=== PATIENT | male | born 1985 | race Caucasian/White ===

== ENCOUNTER 2017-09-08 07:34 | Day surgery (SDC) | payer OTHER, SELFPAY ==
[~2017-09-08 07:34] MED LIST: Dexamethasone 4 MG/ML SDV ONE; Glycopyrrolate 0.2 MG/ML 5 ML MDV ONE; Neostigmine Methylsulfate 1 MG/ML 5 ML Syringe ONE; Ondansetron 4 MG/2 ML SDV ONE; Propofol 200 MG/20 ML SDV ONE; Rocuronium 50 MG/5 ML Vial ONE; Succinylcholine 200 MG/10 ML MDV ONE
[2017-09-08] MEDS: Sodium Chloride 0.9% 1,000 ML IV SCH ×2 (08:24→14:16)
[2017-09-08] MEDS ORDERED: metroNIDAZOLE/Normal Saline 500 MG in Premix Bag 1 BAG IV ONE (08:45)
[2017-09-08] MEDS ORDERED: ceFAZolin 2 GM in Sodium Chloride 0.9% 50 ML IV ONE (09:00)
[2017-09-08] MEDS: Bupivacaine 0.5% 50 ML MDV ONE ×2 (09:30→10:05)
[2017-09-08] MEDS: Lidocaine 1% with EPINEPHrine 1:100,000 50 ML MDV ONE ×2 (09:31→10:05)
[2017-09-08] MEDS ORDERED: Propofol 200 MG/20 ML SDV ONE (09:56)
[2017-09-08] MEDS ORDERED: fentaNYL 100 MCG/2 ML SDV ONE (09:58)
[2017-09-08] MEDS ORDERED: Ketorolac 60 MG/2 ML SDV ONE (10:02)
[2017-09-08] MEDS ORDERED: Morphine 2 MG/ML Syringe IVPUSH PRN (11:10)
[2017-09-08] MEDS: Acetaminophen/oxyCODONE 325-5 MG Tab PO PRN ×2 (12:13→16:23)
[2017-09-08 14:07] VITALS: BP 147/83
--- NOTE | 2017-09-09 09:36 | OR ---
DATE OF PROCEDURE: 09/08/2017 PROCEDURE: Laparoscopic ventral hernia repair x2. FINDINGS: 1. 1 cm hernia directly superior to previous repair. 2. 1.5 cm hernia around umbilicus. COMPLICATIONS: None. APPLICATION MANAGER: None. ANESTHESIA: General/local. INDICATIONS: This is a pleasant gentleman, who had a previous ventral hernia repair . RISKS: Risks, benefits, alternatives, and limitations including, but not limited to infection, bleeding, and injury to abdominal structures such as bowel, bladder, and requirement of open surgery were explained to the patient, who wished to proceed. PROCEDURE IN DETAIL: The patient was placed in left lateral decubitus position. The hernia would be addressed as follows: An incision was made in the right abdomen. This was approximately 50 mm in size, and a Veress needle was used to enter the abdomen without abnormality. A drop test was performed without abnormality. The abdomen was subsequently insufflated, and this was followed by an Optiview trocar. Two additional 5 mm ports were also placed in the right lower and right upper abdomen. Lysis of adhesions was then commenced after the Optiview was introduced, and no evidence of enterotomy is noted. The adhesions were moderate. The previous mesh was noted to be intact without abnormality. The 2 previously mentioned hernias were identified. These both would be replaced with 7.5 cm circular mesh. These were both repaired in the same fashion by creating a defect in the skin, passing a suture through, and then tacking into place. Once this was completed, the abdomen was inspected for abnormality, which there was none. The remainder of the abdomen was inspected without abnormality again a second time. The air was desufflated. The wound was closed with 3-0 Vicryl and 4-0 Vicryl interrupted in running fashion, and Dermabond was applied. The patient tolerated the procedure well. Costa Jorge MD /[id number]
--- NOTE | 2017-09-15 15:18 | DISCH ---
DISCHARGE DIAGNOSIS: Status post laparoscopic ventral hernia. HOSPITAL COURSE: A pleasant 32-year-old male who underwent an uneventful laparoscopic ventral hernia. FOLLOWUP: Follow up with Surgery in 7 to 14 days. DISCHARGE MEDICATIONS: Please see MAR, but include [place] for pain. ACTIVITY: No lifting greater than 30 pounds x30 days. DIET: As tolerated. DRESSINGS: No dressing changes needed as Dermabond was used.
== END 2017-09-08 16:45 | disposition home or self-care (01) ==
LOC: JP.SDS 07:34 → JP.SDSSCHI 07:34 → UNDOADMOB 07:34 → JP.SDSSCHI 10:55 → JP.MS 10:55 → EDSTATUS 11:00 → JP.SDS 16:45 → UNDODISOB 16:55
PROVIDERS: ATTEND Surgery
DX: K43.9 Ventral hernia without obstruction or gangrene (principal); J45.909 Unspecified asthma, uncomplicated; I10 Essential (primary) hypertension; K21.9 Gastro-esophageal reflux disease without esophagitis; F32.9 Major depressive disorder, single episode, unspecified; Z88.8 Allergy status to other drugs, medicaments and biological substances; E66.9 Obesity, unspecified; Z87.891 Personal history of nicotine dependence; Z68.41 Body mass index [BMI] 40.0-44.9, adult
CPT/HCPCS: 49652; A9270; C1781; J0330; J0690; J1100; J1885; J2405; J2704; J2710; J3010; J7040; J7050; J7030

== ENCOUNTER 2019-10-29 16:37 | Emergency (ER) | payer OTHER ==
[2019-10-29] MEDS ORDERED: HYDROmorphone 0.5 MG/0.5 ML Syringe IVPUSH ONE (16:56)
[2019-10-29] MEDS ORDERED: Ondansetron 4 MG/2 ML SDV IVPUSH ONE (16:56)
--- NOTE | 2019-10-29 16:58 | EDM.PDOC ---
ED HPI GENERAL MEDICAL PROBLEM - General Chief Complaint: Chest Pain Stated Complaint: SOB,CHEST PAIN Time Seen by Provider: 10/29/19 16:57 Source of Information: Reports: Patient History Limitations: Reports: No Limitations - History of Present Illness INITIAL COMMENTS - FREE TEXT/NARRATIVE: pt arrived stating that he is having pain in his chest going up to his neck. After he was here for a few minutes the abdoman seemed to be the source of his pain. Onset: Today, Sudden Duration: Hour(s): Location: Reports: Abdomen Associated Symptoms: Reports: Nausea/Vomiting, Other (pt did have chest pain in addition to the abdomanal pain) Left Chest Pain Score (Numeric/FACES): 5 - Related Data Allergies Allergy/AdvReac Type Severity Reaction Status Date / Time acetaminophen [From Vicodin] Allergy Itching Verified 09/07/17 10:07 hydrocodone [From Vicodin] Allergy Itching Verified 09/07/17 10:07 Home Meds: Home Meds Omeprazole 20 mg PO DAILY 06/30/13 [History] lisinopriL [Prinivil] 20 mg PO DAILY 06/30/13 [History] hydroCHLOROthiazide [Hydrochlorothiazide] 25 mg PO DAILY 07/27/16 [History] DULoxetine HCl [Cymbalta] 60 mg PO DAILY 09/07/17 [History] Past Medical History HEENT History: Reports: Impaired Vision Cardiovascular History: Reports: Hypertension Respiratory History: Reports: Asthma, Other (See Below) Other Respiratory History: hx asthma when younger, no problems now Gastrointestinal History: Reports: GERD Genitourinary History: Reports: Renal Calculus Musculoskeletal History: Reports: Amputation Psychiatric History: Reports: Anxiety, Depression Endocrine/Metabolic History: Reports: Obesity/BMI 30+ Dermatologic History: Reports: Eczema, Other (See Below) Other Dermatologic History: hx eczema no problems now - Infectious Disease History Infectious Disease History: Reports: Chicken Pox - Past Surgical History Cardiovascular Surgical History: Reports: None Respiratory Surgical History: Reports: None GI Surgical History: Reports: Hernia, Abdominal, Other (See Below) Other GI Surgeries/Procedures: hernia one year ago, same spot "ventral" Endocrine Surgical History: Reports: None Musculoskeletal Surgical History: Reports: Amputation, Other (See Below) Dermatological Surgical History: Reports: None Social & Family History - Tobacco Use Smoking Status *Q: Never Smoker - Caffeine Use Caffeine Use: Reports: Coffee, Soda, Tea Other Caffeine Use: minimal mostly water - Alcohol Use Days Per Week of Alcohol Use: 7 Number of Drinks Per Day: 3 Total Drinks Per Week: 21 Date of Last Drink: 10/28/19 - Recreational Drug Use Recreational Drug Use: No ED ROS GENERAL - Review of Systems Review Of Systems: See Below Constitutional: Reports: No Symptoms HEENT: Reports: No Symptoms Respiratory: Reports: No Symptoms Cardiovascular: Reports: Chest Pain, Other ( this did relent and he was having abdomanal pain) Endocrine: Reports: No Symptoms GI/Abdominal: Reports: Abdominal Pain : Reports: No Symptoms Musculoskeletal: Reports: No Symptoms Skin: Reports: No Symptoms Neurological: Reports: No Symptoms Psychiatric: Reports: No Symptoms ED EXAM, GENERAL - Physical Exam Exam: See Below Free Text/Narrative:: pt arrived with chest pain which seemed to rapidly center to his rt upper abdoman. Exam Limited By: No Limitations General Appearance: Alert, Anxious, Severe Distress Ears: Normal TMs Nose: Normal Inspection Throat/Mouth: Normal Inspection Head: Atraumatic Neck: Normal Inspection Respiratory/Chest: No Respiratory Distress Cardiovascular: Regular Rate, Rhythm, Tachycardia, Other (pt was complaining of mid chest pain. ) GI/Abdominal: Guarding, Other (pt had definite tenderness in rt upper abdoman. He states he feels like he has mass pushing in the area. ) Rectal (Males) Exam: Deferred Back Exam: Normal Inspection Extremities: Normal Inspection Neurological: Alert, Oriented, Normal Cognition Psychiatric: Anxious Course - Vital Signs Last Recorded V/S: Last Vital Signs Temp 36.0 C L 10/29/19 16:43 Pulse 68 10/29/19 17:54 Resp 15 10/29/19 17:54 BP 165/97 H 10/29/19 17:54 Pulse Ox 95 10/29/19 17:54 - Orders/Labs/Meds Labs: Laboratory Tests 10/29/19 10/29/19 10/29/19 Range/Units 16:45 16:45 16:45 WBC 6.1 (4.5-11.0) K/uL RBC 4.90 (4.30-5.90) M/uL Hgb 16.2 H (12.0-15.0) g/dL Hct 47.9 (40.0-54.0) % MCV 98 (80-98) fL MCH 33 H (27-31) pg MCHC 34 (32-36) % Plt Count 154 (150-400) K/uL Neut % (Auto) 65 (36-66) % Lymph % (Auto) 21 L (24-44) % [place] % (Auto) 12 H (2-6) % Eos % (Auto) 2 (2-4) % Baso % (Auto) 0 (0-1) % Sodium 137 L (140-148) mmol/L Potassium 3.0 L (3.6-5.2) mmol/L Chloride 99 L (100-108) mmol/L Carbon Dioxide 22 (21-32) mmol/L Anion Gap 19.0 H (5.0-14.0) mmol/L BUN 6 L (7-18) mg/dL Creatinine 1.0 (0.8-1.3) mg/dL Est Cr Clr Drug Dosing 109.81 mL/min Estimated GFR (MDRD) > 60 (>60) Glucose 113 H (74-106) mg/dL Calcium 8.7 (8.5-10.1) mg/dL Total Bilirubin 2.6 H (0.2-1.0) mg/dL AST 90 H (15-37) U/L ALT 44 (12-78) U/L Alkaline Phosphatase 64 (46-116) U/L Troponin I < 0.017 (0.000-0.056) ng/mL Total Protein 7.9 (6.4-8.2) g/dL Albumin 4.1 (3.4-5.0) g/dL Globulin 3.8 H (2.3-3.5) g/dL Albumin/Globulin Ratio 1.1 L (1.2-2.2) Lipase (73-393) U/L Urine Color (YELLOW) Urine Appearance (CLEAR) Urine pH (5.0-8.0) Ur Specific [place] (1.008-1.030) Urine Protein (NEGATIVE) mg/dL Urine Glucose (UA) (NEGATIVE) mg/dL Urine Ketones (NEGATIVE) mg/dL Urine Occult Blood (NEGATIVE) Urine Nitrite (NEGATIVE) Urine Bilirubin (NEGATIVE) Urine Urobilinogen (0.2-1.0) EU/dL Ur Leukocyte Esterase (NEGATIVE) Urine RBC (0-5) Urine WBC (0-5) Ur Epithelial Cells Amorphous Sediment Urine Bacteria Urine Mucus 03/02/20 03/02/20 Range/Units 16:45 18:55 WBC (4.5-11.0) K/uL RBC (4.30-5.90) M/uL Hgb (12.0-15.0) g/dL Hct (40.0-54.0) % MCV (80-98) fL MCH (27-31) pg MCHC (32-36) % Plt Count (150-400) K/uL Neut % (Auto) (36-66) % Lymph % (Auto) (24-44) % [place] % (Auto) (2-6) % Eos % (Auto) (2-4) % Baso % (Auto) (0-1) % Sodium (140-148) mmol/L Potassium (3.6-5.2) mmol/L Chloride (100-108) mmol/L Carbon Dioxide (21-32) mmol/L Anion Gap (5.0-14.0) mmol/L BUN (7-18) mg/dL Creatinine (0.8-1.3) mg/dL Est Cr Clr Drug Dosing mL/min Estimated GFR (MDRD) (>60) Glucose (74-106) mg/dL Calcium (8.5-10.1) mg/dL Total Bilirubin (0.2-1.0) mg/dL AST (15-37) U/L ALT (12-78) U/L Alkaline Phosphatase (46-116) U/L Troponin I (0.000-0.056) ng/mL Total Protein (6.4-8.2) g/dL Albumin (3.4-5.0) g/dL Globulin (2.3-3.5) g/dL Albumin/Globulin Ratio (1.2-2.2) Lipase 222 (73-393) U/L Urine Color Yellow (YELLOW) Urine Appearance Clear (CLEAR) Urine pH 7.0 (5.0-8.0) Ur Specific [place] 1.025 (1.008-1.030) Urine Protein Negative (NEGATIVE) mg/dL Urine Glucose (UA) Negative (NEGATIVE) mg/dL Urine Ketones Negative (NEGATIVE) mg/dL Urine Occult Blood Negative (NEGATIVE) Urine Nitrite Negative (NEGATIVE) Urine Bilirubin Negative (NEGATIVE) Urine Urobilinogen 0.2 (0.2-1.0) EU/dL Ur Leukocyte Esterase Negative (NEGATIVE) Urine RBC 0-5 (0-5) Urine WBC Not seen (0-5) Ur Epithelial Cells Not seen Amorphous Sediment Not seen Urine Bacteria Not seen Urine Mucus Not seen Meds: Medications Discontinued Medications Generic Name Dose Route Start Last Admin Trade Name Freq PRN Reason Stop Dose Admin Hydromorphone HCl 0.5 mg 10/29/19 16:56 10/29/19 17:03 Dilaudid IVPUSH 10/29/19 16:57 0.5 mg ONETIME ONE Administration Sodium Chloride 1,000 mls @ 999 mls/hr 10/29/19 17:00 10/29/19 17:05 Normal Saline IV 999 mls/hr ASDIRECTED PRABHA Administration Ondansetron HCl 4 mg 10/29/19 16:56 10/29/19 17:05 Zofran IVPUSH 10/29/19 16:57 4 mg ONETIME ONE Administration - Re-Assessments/Exams Free Text/Narrative Re-Assessment/Exam: 10/29/19 17:33 pt has a normal wbc, bilirubin is 2 and his sgot is elevated. He had a cat scan 2 weeks ago which showed an enlarged spleen and liver. Departure - Departure Time of Disposition: 17:55 Disposition: Home, Self-Care 01 Condition: Fair Clinical Impression: Cholecystitis Referrals: Pk Russo NP [Primary Care Provider] - Forms: ED Department Discharge Care Plan Goals: admit to hosp Sepsis Event Note - Evaluation Sepsis Screening Result: No Definite Risk - Focused Exam Date Exam was Performed: 11/17/19 Time Exam was Performed: 19:25
[2019-10-29] MEDS ORDERED: Sodium Chloride 0.9% 1,000 ML IV SCH (17:00)
[2019-10-29 17:55] VITALS: BP 165/97; PULSE 68
--- NOTE | 2019-10-29 19:06 | CRLUS ---
Indication: Right upper abdominal pain. Technique: Grayscale and color Doppler ultrasound the right upper quadrant was performed. Comparison: CT scan of the abdomen and pelvis dated October 08, 2019. Findings: The pancreas is not well visualized. Aorta is not well visualized. The liver is enlarged and has a coarsened echotexture. No intrahepatic biliary ductal dilatation is identified. No intrahepatic masses identified. The main portal vein is patent. Sludge is identified within the gallbladder. A questionable 5 millimeter polyp versus stone is identified. This is a non shadowing nonmobile adherent mass. The gallbladder wall measures 2 mm in thickness. Sonographic Hanna`s sign is not elicited. The common bile duct measures 5 mm and seen. The right kidney measures 11.5 x 5.1 x 4.5 cm in size. The cortex measures 1.1 cm. No hydronephrosis is identified. The inferior vena cava is patent. No free fluid is identified in the right upper quadrant. Impression: Stone versus tumefactive sludge versus polyp measuring 5 millimeters within the gallbladder. Hepatomegaly. Questionable diffuse fatty infiltration of the liver. Dictated by Mila Davis MD @ Oct 29 2019 7:02PM Signed by Dr. Mila Davis @ Oct 29 2019 7:04PM
== END 2019-10-29 19:13 | disposition home or self-care (01) ==
LOC: JP.ED 16:37
DX: K81.9 Cholecystitis, unspecified (principal); I10 Essential (primary) hypertension; J45.909 Unspecified asthma, uncomplicated; K21.9 Gastro-esophageal reflux disease without esophagitis; Z88.6 Allergy status to analgesic agent; Z79.899 Other long term (current) drug therapy
CPT/HCPCS: 36415; 76705; 80053; 81001; 83690; 84484; 85025; 93005; 96361; 96374; 96375; 99285-25; J1170; J2405; J7030

== ENCOUNTER 2021-11-09 20:35 | Emergency (ER) | payer OTHER ==
[2021-11-09] MEDS ORDERED: HYDROmorphone 1 MG/ML Syringe IVPUSH ONE (21:15)
[2021-11-09] MEDS ORDERED: Ondansetron 4 MG/2 ML SDV IVPUSH ONE (21:16)
[2021-11-09] MEDS ORDERED: Lactated Ringers 1,000 ML IV ONE (21:17)
[2021-11-09] MEDS: Sodium Chloride 0.9% 10 ML Syringe FLUSH PRN ×2 (21:31→22:20)
[2021-11-09] MEDS ORDERED: Sodium Chloride 0.9% 10 ML Syringe FLUSH ONE (21:34)
[2021-11-09] MEDS ORDERED: Sodium Chloride 0.9% 50 ML IV SCH (21:45)
[2021-11-09] MEDS ORDERED: Iopamidol 612 MG/ML 100 ML Bottle IV SCH (21:45)
[2021-11-09 22:11] LABS: CORONAVIRUS COVID-19 NAA POSITIVE (NEGATIVE)
[2021-11-09 22:26] VITALS: BP 135/81; PULSE 83
== END 2021-11-09 23:35 | disposition home or self-care (01) ==
LOC: JP.ED 20:35
DX: U07.1 COVID-19 (principal); E87.6 Hypokalemia; R74.8 Abnormal levels of other serum enzymes; E80.6 Other disorders of bilirubin metabolism; Q44.6 Cystic disease of liver; I10 Essential (primary) hypertension; K21.9 Gastro-esophageal reflux disease without esophagitis; E66.9 Obesity, unspecified; Z88.5 Allergy status to narcotic agent; Z88.8 Allergy status to other drugs, medicaments and biological substances; Z79.899 Other long term (current) drug therapy; Z20.822 Contact with and (suspected) exposure to COVID-19; Z68.39 Body mass index [BMI] 39.0-39.9, adult
CPT/HCPCS: 0241U; 36415; 74177; 80048; 80076; 83605; 85025; 86140; 96374; 96375; 99284; 99284-25; J1170; J2405; J7120; Q9967

== ENCOUNTER 2022-09-30 17:54 | Emergency (ER) | payer OTHER ==
[2022-09-30] MEDS ORDERED: Ondansetron 4 MG Tab.DIS PO ONE (18:43)
[2022-09-30] MEDS ORDERED: Ondansetron 4 MG Tab.DIS PO STA ×2 (18:43)
[2022-09-30 19:33] VITALS: BP 164/92; PULSE 77
[2022-09-30 20:09] LABS: ESTIMATED GFR 99 mL/min (>60)
== END 2022-09-30 20:43 | disposition home or self-care (01) ==
LOC: JP.ED 17:54
DX: K59.00 Constipation, unspecified (principal); I10 Essential (primary) hypertension; J45.909 Unspecified asthma, uncomplicated; K21.9 Gastro-esophageal reflux disease without esophagitis; E66.9 Obesity, unspecified; Z68.41 Body mass index [BMI] 40.0-44.9, adult; Z88.5 Allergy status to narcotic agent; Z79.899 Other long term (current) drug therapy
CPT/HCPCS: 36415; 74019; 74019-26; 80053; 83690; 85025; 99282; 99284; Q0162

== ENCOUNTER 2024-09-28 06:52 | Day surgery (SDC) | payer OTHER ==
[2024-09-28] MEDS ORDERED: Propofol 200 MG/20 ML SDV ONE ×2 (07:19→08:43)
[2024-09-28] MEDS ORDERED: fentaNYL 50 MCG/ML SDV ONE (07:19)
[2024-09-28] MEDS ORDERED: Midazolam 1 MG/ML 2 ML SDV ONE (07:19)
[2024-09-28] MEDS: Lactated Ringers 1,000 ML IV SCH (07:58)
[2024-09-28 09:43] VITALS: BP 123/74; PULSE 68
== END 2024-09-28 09:56 | disposition home or self-care (01) ==
LOC: JP.SDS 06:52
PROVIDERS: ATTEND Surgery
DX: K29.00 Acute gastritis without bleeding (principal); K22.89 Other specified disease of esophagus; I10 Essential (primary) hypertension; K21.9 Gastro-esophageal reflux disease without esophagitis; F32.A Depression, unspecified; Z79.899 Other long term (current) drug therapy
CPT/HCPCS: 00731; 43239; J2250; J2704; J3010; J7120; 88305; 88342

== ENCOUNTER 2025-02-08 07:05 | Emergency (ER) | payer OTHER ==
[2025-02-08] MEDS: Prochlorperazine 10 MG/2 ML SDV IVPUSH ONE (08:16)
[2025-02-08] MEDS: Ketorolac 30 MG/ML SDV IVPUSH ONE (08:16)
[2025-02-08] MEDS: Sodium Chloride 0.9% 1,000 ML IV ONE (08:16)
[2025-02-08 08:17] LABS: BASOPHILS PERCENT AUTO 0.5 % (0.1-1.3); EOSINOPHILS PERCENT AUTO 0.3 % (0.0-5.4); HEMATOCRIT 45.1 % (38.4-49.7); HEMOGLOBIN 16.1 g/dL (12.9-16.9); IMMATURE GRAN PERCENT AUTO 0.3 % (0.0-0.7); LYMPHOCYTES ABSOLUTE AUTO 0.55 K/uL (0.8-3.3); LYMPHOCYTES PERCENT AUTO 14.4 % (11.4-47.7); MEAN CORPUSCULAR HEMOGLOBIN 34.3 pg (31.6-35.5); MEAN CORPUSCULAR HGB CONC 35.7 g/dL (31.6-35.5); MEAN CORPUSCULAR VOLUME 96.2 fL (81.4-99.0); MONOCYTES ABSOLUTE AUTO 0.53 K/uL (0.20-0.90); MONOCYTES PERCENT AUTO 13.9 % (3.3-12.6); NEUTROPHILS ABSOLUTE AUTO 2.69 K/uL (1.0-7.6); NEUTROPHILS PERCENT AUTO 70.6 % (40.0-78.1); PLATELET COUNT,PLT 126 K/uL (130-375); RED BLOOD CELL COUNT 4.69 M/uL (4.14-5.76); WHITE BLOOD CELL COUNT,WBC 3.8 K/uL (3.2-11.0)
[2025-02-08 08:19] LABS: BASE EXCESS VENOUS 3.8 mm/L; CARBOXYHEMOGLOBIN 3.3 % (0.0-1.6); METHEMOGLOBIN 0.8 %; OXYHEMOGLOBIN 86.3 %; PCO2 VENOUS 29.5 mm/Hg; PH,VENOUS 7.538 (7.350-7.450); TOTAL HEMOGLOBIN 16.8 g/dL (13.5-18.0)
[2025-02-08 08:21] LABS: BASOPHILS ABSOLUTE AUTO 0.02 K/uL (0.00-0.10); EOSINOPHILS ABSOLUTE AUTO 0.01 K/uL (0.00-0.40); IMMATURE GRAN ABSOLUTE AUTO 0.01 K/uL (0.00-0.23)
[2025-02-08 08:37] LABS: A/G RATIO 0.7 (1.2-2.2); ALANINE AMINOTRANSFERASE,ALT 99 U/L (12-78); ALBUMIN 3.3 g/dL (3.4-5.0); ALKALINE PHOSPHATASE 88 U/L (46-116); ASPARTATE AMNIOTRANSFERASE,AST 193 U/L (15-37); BILIRUBIN TOTAL 4.2 mg/dL (0.2-1.0); BLOOD UREA NITROGEN,BUN 11 mg/dL (7-18); CALCIUM 8.6 mg/dL (8.5-10.1); CARBON DIOXIDE,CO2 25 mmol/L (21-32); CHLORIDE,CL 99 mmol/L (100-108); EST CRCL DRUG DOSING (CG) 104.58 mL/min; ESTIMATED GFR 98 mL/min (>60); GLUCOSE RANDOM 121 mg/dL (74-106); POTASSIUM,K 3.8 mmol/L (3.6-5.2); PROTEIN TOTAL,TP 7.9 g/dL (6.4-8.2); SODIUM,NA 135 mmol/L (140-148)
[2025-02-08 08:38] LABS: ANION GAP 14.8 mmol/L (5.0-14.0); C-REACTIVE PROTEIN 2.59 mg/dL (<0.50); MAGNESIUM 1.3 mg/dL (1.8-2.4)
[2025-02-08] MEDS: Magnesium Sulfate 2 GM/50 mL 2 GM in Premix Bag 1 BAG IV ONE (09:26)
[2025-02-08 09:39] LABS: APPEARANCE,URINE CLOUDY (CLEAR); BILIRUBIN,URINE LARGE (NEGATIVE); COLOR,URINE BROWN (YELLOW); GLUCOSE,URINE NEGATIVE (NEGATIVE); KETONES,URINE 40 mg/dL (NEGATIVE); LEUKOCYTE ESTERASE,URINE NEGATIVE (NEGATIVE); NITRITE,URINE NEGATIVE (NEGATIVE); OCCULT BLOOD,URINE SMALL (NEGATIVE); PROTEIN,URINE 100 mg/dL (NEGATIVE); UROBILINOGEN,URINE >=8.0 EU/dL (0.2-1.0)
[2025-02-08 09:40] LABS: AMPHETAMINES SCREEN, URINE NEGATIVE (NEGATIVE); BARBITURATE SCREEN,URINE NEGATIVE (NEGATIVE); BENZODIAZEPINES SCREEN,URINE NEGATIVE (NEGATIVE); METHADONE SCREEN, URINE NEGATIVE (NEGATIVE); METHAMPHETAMINES SCREEN, URINE NEGATIVE (NEGATIVE); OXYCODONE SCREEN,URINE PRESUMPTIVE POSITIVE (NEGATIVE); PROPOXYPHENE SCREEN,URINE NEGATIVE (NEGATIVE); THC SCREEN,URINE 50 NG/ML PRESUMPTIVE POSITIVE (NEGATIVE)
[2025-02-08 09:46] LABS: AMORPHOUS SEDIMENT,URINE NOT SEEN; BACTERIA,URINE NOT SEEN; EPITHELIAL CELLS,URINE FEW; MUCUS,URINE FEW; WBC,URINE 0-5 (0-5)
[2025-02-08 10:02] VITALS: BP 135/82; PULSE 72
== END 2025-02-08 12:20 | disposition home or self-care (01) ==
LOC: JP.ED 07:05
DX: K70.30 Alcoholic cirrhosis of liver without ascites (principal); E83.42 Hypomagnesemia; K76.6 Portal hypertension; R06.4 Hyperventilation; J45.909 Unspecified asthma, uncomplicated; K21.9 Gastro-esophageal reflux disease without esophagitis; E66.9 Obesity, unspecified; Z68.37 Body mass index [BMI] 37.0-37.9, adult; Z86.16 Personal history of COVID-19; Z79.899 Other long term (current) drug therapy; Z88.5 Allergy status to narcotic agent; Z88.8 Allergy status to other drugs, medicaments and biological substances
CPT/HCPCS: 36415; 71045; 74177; 76705; 80053; 80305; 80307; 81001; 82803; 83605; 83690; 83735; 85025; 86140; 86308; 87428; 96361; 96365; 96366; 96375; 99284; J0780; J1885; J3475; J7030

== ENCOUNTER 2025-04-20 02:15 | Emergency (ER) | payer OTHER ==
[2025-04-20] MEDS ORDERED: Ondansetron 4 MG/2 ML SDV ONE (02:49)
[2025-04-20] MEDS: Ondansetron 4 MG/2 ML SDV IVPUSH ONE (02:53)
[2025-04-20 03:00] LABS: BASOPHILS ABSOLUTE AUTO 0.08 K/uL (0.00-0.10); BASOPHILS PERCENT AUTO 1.0 % (0.1-1.3); EOSINOPHILS PERCENT AUTO 0.1 % (0.0-5.4); IMMATURE GRAN ABSOLUTE AUTO 0.03 K/uL (0.00-0.23); IMMATURE GRAN PERCENT AUTO 0.4 % (0.0-0.7); LYMPHOCYTES ABSOLUTE AUTO 0.94 K/uL (0.8-3.3); LYMPHOCYTES PERCENT AUTO 12.1 % (11.4-47.7); MONOCYTES ABSOLUTE AUTO 0.54 K/uL (0.20-0.90); MONOCYTES PERCENT AUTO 7.0 % (3.3-12.6); NEUTROPHILS ABSOLUTE AUTO 6.16 K/uL (1.0-7.6); NEUTROPHILS PERCENT AUTO 79.4 % (40.0-78.1); PLATELET COUNT,PLT 154 K/uL (130-375); RED BLOOD CELL COUNT 5.01 M/uL (4.14-5.76); WHITE BLOOD CELL COUNT,WBC 7.8 K/uL (3.2-11.0)
[2025-04-20] MEDS ORDERED: Naloxone 0.4 MG/ML SDV IVPUSH PRN (03:05)
[2025-04-20 03:08] LABS: EOSINOPHILS ABSOLUTE AUTO 0.01 K/uL (0.00-0.40)
[2025-04-20 03:21] LABS: A/G RATIO 0.8 (1.2-2.2); ALANINE AMINOTRANSFERASE,ALT 57 U/L (12-78); BILIRUBIN TOTAL 3.5 mg/dL (0.2-1.0); BLOOD UREA NITROGEN,BUN 7 mg/dL (7-18); CARBON DIOXIDE,CO2 17 mmol/L (21-32); CHLORIDE,CL 99 mmol/L (100-108); CREATININE 0.8 mg/dL (0.8-1.3); EST CRCL DRUG DOSING (CG) 129.42 mL/min; ESTIMATED GFR 114 mL/min (>60); GLUCOSE RANDOM 108 mg/dL (74-106); POTASSIUM,K 3.8 mmol/L (3.6-5.2); PROTEIN TOTAL,TP 8.8 g/dL (6.4-8.2); SODIUM,NA 137 mmol/L (140-148)
[2025-04-20 03:23] LABS: ASPARTATE AMNIOTRANSFERASE,AST 94 U/L (15-37)
[2025-04-20] MEDS: Iopamidol 612 MG/ML 100 ML Bottle IV PRN (04:00)
[2025-04-20] MEDS: Prochlorperazine 10 MG/2 ML SDV IVPUSH ONE (05:39)
[2025-04-20] MEDS: Ketorolac 30 MG/ML SDV IVPUSH ONE (05:40)
[2025-04-20] MEDS: LORazepam 2 MG/ML SDV IVPUSH ONE (08:19)
[2025-04-20] MEDS: Sodium Chloride 0.9% 10 ML Syringe FLUSH PRN (09:49)
[2025-04-20 13:52] VITALS: BP 154/96; PULSE 89
[2025-04-23 17:28] LABS: HEPATITIS B SURFACE ANTIBODY 7.36 IU/L
[2025-04-23 18:15] LABS: HEPATITIS B CORE ANTIBODY,IGM Negative (Negative)
[2025-04-23 18:45] LABS: HEPATITIS A ANTIBODY, IGM Negative (Negative); HEPATITIS C AB CIA INTERP Negative (Negative); HEPATITIS C ANTIBODY CIA INDEX 0.12 IV
[2025-04-23 18:54] LABS: HEPATITIS BE ANTIGEN Negative (Negative)
== END 2025-04-20 13:00 | disposition home or self-care (01) ==
LOC: JP.ED 02:15
DX: E86.0 Dehydration (principal); R10.84 Generalized abdominal pain; F10.230 Alcohol dependence with withdrawal, uncomplicated; I10 Essential (primary) hypertension; J45.909 Unspecified asthma, uncomplicated; Z86.16 Personal history of COVID-19; Z88.5 Allergy status to narcotic agent; Z79.890 Hormone replacement therapy; Z79.899 Other long term (current) drug therapy; Y90.9 Presence of alcohol in blood, level not specified
CPT/HCPCS: 36415; 74177; 80053; 80074; 80307; 83605; 83690; 85025; 86140; 86705; 86706; 87350; 96361; 96374; 96375; 99284; J0780; J1171; J1885; J2060; J2405; J7030; Q9967

== ENCOUNTER 2025-05-10 07:56 | Inpatient (IN) | payer OTHER ==
[2025-05-10 08:34] LABS: BASOPHILS ABSOLUTE AUTO 0.09 K/uL (0.00-0.10); BASOPHILS PERCENT AUTO 1.1 % (0.1-1.3); EOSINOPHILS PERCENT AUTO 0.1 % (0.0-5.4); IMMATURE GRAN ABSOLUTE AUTO 0.03 K/uL (0.00-0.23); IMMATURE GRAN PERCENT AUTO 0.4 % (0.0-0.7); LYMPHOCYTES ABSOLUTE AUTO 0.83 K/uL (0.8-3.3); LYMPHOCYTES PERCENT AUTO 10.1 % (11.4-47.7); MONOCYTES ABSOLUTE AUTO 0.64 K/uL (0.20-0.90); MONOCYTES PERCENT AUTO 7.8 % (3.3-12.6); NEUTROPHILS ABSOLUTE AUTO 6.63 K/uL (1.0-7.6); NEUTROPHILS PERCENT AUTO 80.5 % (40.0-78.1); PLATELET COUNT,PLT 186 K/uL (130-375); RED BLOOD CELL COUNT 5.23 M/uL (4.14-5.76); WHITE BLOOD CELL COUNT,WBC 8.2 K/uL (3.2-11.0)
[2025-05-10] MEDS: Ondansetron 4 MG/2 ML SDV IVPUSH ONE (08:36)
[2025-05-10] MEDS: LORazepam 2 MG/ML SDV IVPUSH ONE ×3 (08:37→14:05)
[2025-05-10 08:56] LABS: A/G RATIO 0.9 (1.2-2.2); ALANINE AMINOTRANSFERASE,ALT 76 U/L (12-78); ASPARTATE AMNIOTRANSFERASE,AST 148 U/L (15-37); BILIRUBIN TOTAL 4.2 mg/dL (0.2-1.0); BLOOD UREA NITROGEN,BUN 7 mg/dL (7-18); CARBON DIOXIDE,CO2 17 mmol/L (21-32); CHLORIDE,CL 99 mmol/L (100-108); CREATININE 0.9 mg/dL (0.8-1.3); EST CRCL DRUG DOSING (CG) 118.56 mL/min; ESTIMATED GFR 110 mL/min (>60); GLUCOSE RANDOM 151 mg/dL (74-106); POTASSIUM,K 3.6 mmol/L (3.6-5.2); PROTEIN TOTAL,TP 8.8 g/dL (6.4-8.2); SODIUM,NA 138 mmol/L (140-148)
[2025-05-10 08:59] LABS: TROPONIN I HIGH SENSITIVITY 7.9 pg/mL (<=60.3)
[2025-05-10 09:11] LABS: EOSINOPHILS ABSOLUTE AUTO 0.01 K/uL (0.00-0.40)
[2025-05-10] MEDS: Magnesium Sulfate 2 GM/50 mL 2 GM in Premix Bag 1 BAG IV ONE (09:36)
[2025-05-10] MEDS: Prochlorperazine 10 MG/2 ML SDV IVPUSH ONE (11:08)
[2025-05-10] MEDS ORDERED: Ondansetron 4 MG/2 ML SDV IV PRN (14:18)
[2025-05-10 14:32] LABS: APPEARANCE,URINE SLIGHTLY CLOUDY (CLEAR); GLUCOSE,URINE 100 mg/dL (NEGATIVE); OCCULT BLOOD,URINE MODERATE (NEGATIVE)
[2025-05-10 14:36] LABS: INR 1.2; PTT,PARTIAL THROMBOPLSTIN TIME 26.3 sec (21.8-27.3)
[2025-05-10 14:47] LABS: SQUAMOUS EPITHELIAL CELLS,UR RARE /HPF; UROTHELIAL CELLS,URINE NOT SEEN /HPF
[2025-05-10 14:48] LABS: AMPHETAMINES SCREEN, URINE NEGATIVE (NEGATIVE); METHAMPHETAMINES SCREEN, URINE NEGATIVE (NEGATIVE)
[2025-05-10 14:49] LABS: METHADONE SCREEN, URINE NEGATIVE (NEGATIVE); OXYCODONE SCREEN,URINE NEGATIVE (NEGATIVE); PROPOXYPHENE SCREEN,URINE NEGATIVE (NEGATIVE); THC SCREEN,URINE 50 NG/ML PRESUMPTIVE POSITIVE (NEGATIVE)
[2025-05-10] MEDS: Prochlorperazine 10 MG/2 ML SDV IVPUSH PRN (14:58)
[2025-05-10] MEDS: LORazepam 2 MG/ML SDV IV PRN (14:59)
[2025-05-10] MEDS ORDERED: MVI, Adult with Vitamin K 10 ML, Thiamine 100 MG, Folic Acid 1 MG, Magnesium Sulf 1 GM/... IV ONE (15:00)
[2025-05-10] MEDS: VITAMIN K IV ONE (15:11)
[2025-05-10] MEDS: MVI IV ONE (15:11)
[2025-05-10] MEDS: [UNRECOGNIZED DRUG - OTHER] IV ONE (15:11)
[2025-05-10] MEDS: FOLIC ACID IV ONE (15:11)
[2025-05-10] MEDS: THIAMINE IV ONE (15:11)
[2025-05-11 05:30] LABS: BASOPHILS ABSOLUTE AUTO 0.03 K/uL (0.00-0.10); BASOPHILS PERCENT AUTO 0.7 % (0.1-1.3); EOSINOPHILS ABSOLUTE AUTO 0.03 K/uL (0.00-0.40); EOSINOPHILS PERCENT AUTO 0.7 % (0.0-5.4); IMMATURE GRAN PERCENT AUTO 0.2 % (0.0-0.7); LYMPHOCYTES ABSOLUTE AUTO 0.77 K/uL (0.8-3.3); LYMPHOCYTES PERCENT AUTO 16.8 % (11.4-47.7); MONOCYTES ABSOLUTE AUTO 0.43 K/uL (0.20-0.90); MONOCYTES PERCENT AUTO 9.4 % (3.3-12.6); NEUTROPHILS ABSOLUTE AUTO 3.30 K/uL (1.0-7.6); NEUTROPHILS PERCENT AUTO 72.2 % (40.0-78.1); PLATELET COUNT,PLT 92 K/uL (130-375); RED BLOOD CELL COUNT 4.18 M/uL (4.14-5.76); WHITE BLOOD CELL COUNT,WBC 4.6 K/uL (3.2-11.0)
[2025-05-11 05:40] LABS: IMMATURE GRAN ABSOLUTE AUTO 0.01 K/uL (0.00-0.23)
[2025-05-11 05:56] LABS: A/G RATIO 0.8 (1.2-2.2); ALANINE AMINOTRANSFERASE,ALT 55 U/L (12-78); ASPARTATE AMNIOTRANSFERASE,AST 90 U/L (15-37); BILIRUBIN TOTAL 5.3 mg/dL (0.2-1.0); BLOOD UREA NITROGEN,BUN 9 mg/dL (7-18); CARBON DIOXIDE,CO2 26 mmol/L (21-32); CHLORIDE,CL 102 mmol/L (100-108); CREATININE 0.7 mg/dL (0.8-1.3); EST CRCL DRUG DOSING (CG) 152.43 mL/min; ESTIMATED GFR 119 mL/min (>60); GLUCOSE RANDOM 96 mg/dL (74-106); POTASSIUM,K 3.5 mmol/L (3.6-5.2); PROTEIN TOTAL,TP 6.9 g/dL (6.4-8.2); SODIUM,NA 135 mmol/L (140-148)
[2025-05-12] MEDS: LORazepam 2 MG/ML SDV IVPUSH ONE ×2 (04:31)
[2025-05-12] MEDS ORDERED: PHENobarbital Sodium 65 MG/ML SDV IV ONE (04:33)
[2025-05-12] MEDS: PHENobarbitaL sodium 260 MG in Sodium Chloride 0.9% 100 ML IV ONE (05:06)
[2025-05-12] MEDS: PHENobarbital Sodium 65 MG/ML SDV ONE (05:26)
[2025-05-12] MEDS: PHENobarbital Sodium 65 MG/ML SDV IVPUSH PRN (07:39)
[2025-05-12 08:41] LABS: BASOPHILS ABSOLUTE AUTO 0.04 K/uL (0.00-0.10); BASOPHILS PERCENT AUTO 1.0 % (0.1-1.3); EOSINOPHILS ABSOLUTE AUTO 0.06 K/uL (0.00-0.40); EOSINOPHILS PERCENT AUTO 1.5 % (0.0-5.4); IMMATURE GRAN ABSOLUTE AUTO 0.02 K/uL (0.00-0.23); IMMATURE GRAN PERCENT AUTO 0.5 % (0.0-0.7); LYMPHOCYTES ABSOLUTE AUTO 0.79 K/uL (0.8-3.3); LYMPHOCYTES PERCENT AUTO 19.5 % (11.4-47.7); MONOCYTES ABSOLUTE AUTO 0.41 K/uL (0.20-0.90); MONOCYTES PERCENT AUTO 10.1 % (3.3-12.6); NEUTROPHILS ABSOLUTE AUTO 2.73 K/uL (1.0-7.6); NEUTROPHILS PERCENT AUTO 67.4 % (40.0-78.1); PLATELET COUNT,PLT 112 K/uL (130-375); RED BLOOD CELL COUNT 4.15 M/uL (4.14-5.76); WHITE BLOOD CELL COUNT,WBC 4.1 K/uL (3.2-11.0)
[2025-05-12] MEDS: propofoL 1,000 MG/100 ML 100 ML ONE (10:47)
[2025-05-12] MEDS: propofoL 1,000 MG/100 ML 100 ML IV SCH (11:25)
[2025-05-12] MEDS ORDERED: Propofol 200 MG/20 ML SDV ONE (11:47)
[2025-05-12 12:08] LABS: A/G RATIO 0.8 (1.2-2.2); ALANINE AMINOTRANSFERASE,ALT 51 U/L (12-78); ASPARTATE AMNIOTRANSFERASE,AST 80 U/L (15-37); BILIRUBIN TOTAL 7.1 mg/dL (0.2-1.0); BLOOD UREA NITROGEN,BUN 7 mg/dL (7-18); CARBON DIOXIDE,CO2 26 mmol/L (21-32); CHLORIDE,CL 102 mmol/L (100-108); CREATININE 0.7 mg/dL (0.8-1.3); EST CRCL DRUG DOSING (CG) 152.43 mL/min; ESTIMATED GFR 119 mL/min (>60); GLUCOSE RANDOM 100 mg/dL (74-106); POTASSIUM,K 3.9 mmol/L (3.6-5.2); PROTEIN TOTAL,TP 6.9 g/dL (6.4-8.2); SODIUM,NA 136 mmol/L (140-148)
[2025-05-12] MEDS: Heparin Sodium 5,000 UNITS in Sodium Chloride 0.9% 500 ML IV SCH (14:27)
[2025-05-12 17:06] LABS: BASE EXCESS ARTERIAL -3.8 mm/L; BICARBONATE,ARTERIAL 20.3 mmol/L (22.0-26.0); OXYHEMOGLOBIN 96.0 %; PCO2 ARTERIAL 35.5 mmHg (35.0-42.0); PO2 ARTERIAL 180.0 mmHg (75.0-100.0); TOTAL HEMOGLOBIN 12.4 g/dL (13.5-18.0)
[2025-05-12 17:09] LABS: O2 SATURATION ARTERIAL > 99.3 % (95.0-98.0)
[2025-05-13 05:49] LABS: BASE EXCESS ARTERIAL -3.5 mm/L; BICARBONATE,ARTERIAL 19.0 mmol/L (22.0-26.0); O2 SATURATION ARTERIAL 98.2 % (95.0-98.0); OXYHEMOGLOBIN 95.2 %; PCO2 ARTERIAL 28.5 mmHg (35.0-42.0); PO2 ARTERIAL 95.4 mmHg (75.0-100.0); TOTAL HEMOGLOBIN 13.2 g/dL (13.5-18.0)
[2025-05-13 05:56] LABS: BASOPHILS ABSOLUTE AUTO 0.05 K/uL (0.00-0.10); BASOPHILS PERCENT AUTO 1.0 % (0.1-1.3); EOSINOPHILS ABSOLUTE AUTO 0.07 K/uL (0.00-0.40); EOSINOPHILS PERCENT AUTO 1.3 % (0.0-5.4); IMMATURE GRAN PERCENT AUTO 0.4 % (0.0-0.7); LYMPHOCYTES ABSOLUTE AUTO 0.60 K/uL (0.8-3.3); LYMPHOCYTES PERCENT AUTO 11.5 % (11.4-47.7); MONOCYTES ABSOLUTE AUTO 0.49 K/uL (0.20-0.90); MONOCYTES PERCENT AUTO 9.4 % (3.3-12.6); NEUTROPHILS ABSOLUTE AUTO 3.97 K/uL (1.0-7.6); NEUTROPHILS PERCENT AUTO 76.4 % (40.0-78.1); PLATELET COUNT,PLT 92 K/uL (130-375); RED BLOOD CELL COUNT 3.82 M/uL (4.14-5.76); WHITE BLOOD CELL COUNT,WBC 5.2 K/uL (3.2-11.0)
[2025-05-13 06:00] LABS: IMMATURE GRAN ABSOLUTE AUTO 0.02 K/uL (0.00-0.23)
[2025-05-13 06:22] LABS: A/G RATIO 0.8 (1.2-2.2); ALANINE AMINOTRANSFERASE,ALT 49 U/L (12-78); BILIRUBIN TOTAL 4.8 mg/dL (0.2-1.0); BLOOD UREA NITROGEN,BUN 7 mg/dL (7-18); CARBON DIOXIDE,CO2 20 mmol/L (21-32); CHLORIDE,CL 104 mmol/L (100-108); EST CRCL DRUG DOSING (CG) 152.43 mL/min; ESTIMATED GFR 119 mL/min (>60); GLUCOSE RANDOM 84 mg/dL (74-106); POTASSIUM,K 3.7 mmol/L (3.6-5.2); SODIUM,NA 134 mmol/L (140-148)
[2025-05-13 06:23] LABS: ASPARTATE AMNIOTRANSFERASE,AST 69 U/L (15-37); CREATININE 0.7 mg/dL (0.8-1.3); PROTEIN TOTAL,TP 6.4 g/dL (6.4-8.2)
[2025-05-14 05:42] LABS: BASE EXCESS ARTERIAL -5.2 mm/L; BICARBONATE,ARTERIAL 17.8 mmol/L (22.0-26.0); O2 SATURATION ARTERIAL 99.1 % (95.0-98.0); OXYHEMOGLOBIN 95.9 %; PCO2 ARTERIAL 29.0 mmHg (35.0-42.0); PO2 ARTERIAL 125.0 mmHg (75.0-100.0); TOTAL HEMOGLOBIN 13.9 g/dL (13.5-18.0)
[2025-05-14 05:43] LABS: BASOPHILS ABSOLUTE AUTO 0.03 K/uL (0.00-0.10); BASOPHILS PERCENT AUTO 0.5 % (0.1-1.3); EOSINOPHILS ABSOLUTE AUTO 0.08 K/uL (0.00-0.40); EOSINOPHILS PERCENT AUTO 1.4 % (0.0-5.4); IMMATURE GRAN ABSOLUTE AUTO 0.03 K/uL (0.00-0.23); IMMATURE GRAN PERCENT AUTO 0.5 % (0.0-0.7); LYMPHOCYTES ABSOLUTE AUTO 0.66 K/uL (0.8-3.3); LYMPHOCYTES PERCENT AUTO 11.8 % (11.4-47.7); MONOCYTES ABSOLUTE AUTO 0.69 K/uL (0.20-0.90); MONOCYTES PERCENT AUTO 12.3 % (3.3-12.6); NEUTROPHILS ABSOLUTE AUTO 4.11 K/uL (1.0-7.6); NEUTROPHILS PERCENT AUTO 73.5 % (40.0-78.1); PLATELET COUNT,PLT 105 K/uL (130-375); RED BLOOD CELL COUNT 4.01 M/uL (4.14-5.76); WHITE BLOOD CELL COUNT,WBC 5.6 K/uL (3.2-11.0)
[2025-05-14 06:09] LABS: A/G RATIO 0.8 (1.2-2.2); ALANINE AMINOTRANSFERASE,ALT 46 U/L (12-78); ASPARTATE AMNIOTRANSFERASE,AST 61 U/L (15-37); BILIRUBIN TOTAL 4.5 mg/dL (0.2-1.0); BLOOD UREA NITROGEN,BUN 6 mg/dL (7-18); CARBON DIOXIDE,CO2 19 mmol/L (21-32); CHLORIDE,CL 103 mmol/L (100-108); CREATININE 0.7 mg/dL (0.8-1.3); EST CRCL DRUG DOSING (CG) 152.43 mL/min; ESTIMATED GFR 119 mL/min (>60); GLUCOSE RANDOM 85 mg/dL (74-106); POTASSIUM,K 3.4 mmol/L (3.6-5.2); PROTEIN TOTAL,TP 6.5 g/dL (6.4-8.2); SODIUM,NA 134 mmol/L (140-148)
[2025-05-14] MEDS: Magnesium Sulfate 2 GM/50 mL 2 GM in Premix Bag 1 BAG IV ONE (08:05)
[2025-05-14] MEDS: Furosemide 20 MG/2 ML VIAL IVPUSH ONE (11:44)
[2025-05-15 05:57] LABS: BASE EXCESS ARTERIAL -4.4 mm/L; BICARBONATE,ARTERIAL 18.7 mmol/L (22.0-26.0); O2 SATURATION ARTERIAL 97.8 % (95.0-98.0); OXYHEMOGLOBIN 95.4 %; PCO2 ARTERIAL 30.1 mmHg (35.0-42.0); PLATELET COUNT,PLT 108.0 K/uL (130-375); PO2 ARTERIAL 93.6 mmHg (75.0-100.0); RED BLOOD CELL COUNT 4.06 M/uL (4.14-5.76); TOTAL HEMOGLOBIN 14.0 g/dL (13.5-18.0); WHITE BLOOD CELL COUNT,WBC 9.0 K/uL (3.2-11.0)
[2025-05-15] MEDS: cefTRIAXone 2 GM AdvVial IV ONE (06:07)
[2025-05-15 06:18] LABS: A/G RATIO 0.7 (1.2-2.2); ALANINE AMINOTRANSFERASE,ALT 41 U/L (12-78); ASPARTATE AMNIOTRANSFERASE,AST 55 U/L (15-37); BILIRUBIN TOTAL 5.7 mg/dL (0.2-1.0); BLOOD UREA NITROGEN,BUN 6 mg/dL (7-18); CARBON DIOXIDE,CO2 22 mmol/L (21-32); CHLORIDE,CL 101 mmol/L (100-108); CREATININE 0.7 mg/dL (0.8-1.3); EST CRCL DRUG DOSING (CG) 152.64 mL/min; ESTIMATED GFR 119 mL/min (>60); GLUCOSE RANDOM 99 mg/dL (74-106); POTASSIUM,K 3.5 mmol/L (3.6-5.2); PROTEIN TOTAL,TP 6.8 g/dL (6.4-8.2); SODIUM,NA 133 mmol/L (140-148)
[2025-05-15] MEDS: Furosemide 20 MG/2 ML VIAL IVPUSH ONE (12:34)
[2025-05-15] MEDS: Ketorolac 30 MG/ML SDV IVPUSH PRN (14:48)
[2025-05-15] MEDS: Acetylcysteine 20% 200 MG/ML 4 ML Nebulizer Soln SDV NEB SCH (14:49)
[2025-05-16 01:52] LABS: BASE EXCESS ARTERIAL -3.3 mm/L; BICARBONATE,ARTERIAL 21.8 mmol/L (22.0-26.0); O2 SATURATION ARTERIAL 97.1 % (95.0-98.0); OXYHEMOGLOBIN 94.5 %; PCO2 ARTERIAL 41.6 mmHg (35.0-42.0); PO2 ARTERIAL 90.2 mmHg (75.0-100.0); TOTAL HEMOGLOBIN 14.7 g/dL (13.5-18.0)
[2025-05-16] MEDS: LORazepam 2 MG/ML SDV IVPUSH ONE (02:14)
[2025-05-16 02:29] LABS: CREATINE KINASE,CK 52.0 U/L (39-308); TROPONIN I HIGH SENSITIVITY 6.0 pg/mL (<=60.3)
[2025-05-16 03:06] LABS: BASE EXCESS ARTERIAL -3.5 mm/L; BICARBONATE,ARTERIAL 20.5 mmol/L (22.0-26.0); O2 SATURATION ARTERIAL 96.8 % (95.0-98.0); OXYHEMOGLOBIN 94.4 %; PCO2 ARTERIAL 35.8 mmHg (35.0-42.0); PO2 ARTERIAL 81.3 mmHg (75.0-100.0); TOTAL HEMOGLOBIN 14.2 g/dL (13.5-18.0)
[2025-05-16] MEDS: methylPREDNISolone Sodium Succinate 125 MG/2 ML SDV IVPUSH ONE (03:12)
[2025-05-16 05:39] LABS: BASE EXCESS ARTERIAL -5.3 mm/L; BICARBONATE,ARTERIAL 19.4 mmol/L (22.0-26.0); O2 SATURATION ARTERIAL 98.0 % (95.0-98.0); OXYHEMOGLOBIN 95.4 %; PCO2 ARTERIAL 37.3 mmHg (35.0-42.0); PO2 ARTERIAL 106.0 mmHg (75.0-100.0); TOTAL HEMOGLOBIN 14.1 g/dL (13.5-18.0)
[2025-05-16 05:42] LABS: PLATELET COUNT,PLT 119.0 K/uL (130-375); RED BLOOD CELL COUNT 4.06 M/uL (4.14-5.76); WHITE BLOOD CELL COUNT,WBC 7.7 K/uL (3.2-11.0)
[2025-05-16 06:06] LABS: A/G RATIO 0.7 (1.2-2.2); ALANINE AMINOTRANSFERASE,ALT 38 U/L (12-78); ASPARTATE AMNIOTRANSFERASE,AST 42 U/L (15-37); BILIRUBIN TOTAL 6.7 mg/dL (0.2-1.0); BLOOD UREA NITROGEN,BUN 10 mg/dL (7-18); CARBON DIOXIDE,CO2 21 mmol/L (21-32); CHLORIDE,CL 101 mmol/L (100-108); CREATININE 0.7 mg/dL (0.8-1.3); EST CRCL DRUG DOSING (CG) 152.64 mL/min; ESTIMATED GFR 119 mL/min (>60); GLUCOSE RANDOM 117 mg/dL (74-106); POTASSIUM,K 4.1 mmol/L (3.6-5.2); PROTEIN TOTAL,TP 7.3 g/dL (6.4-8.2); SODIUM,NA 133 mmol/L (140-148)
[2025-05-16] MEDS: Albuterol 0.083% 2.5 MG/3 ML Neb Soln NEB PRN (07:28)
[2025-05-16] MEDS: methylPREDNISolone Sodium Succinate 125 MG/2 ML SDV IVPUSH SCH (10:24)
[2025-05-16] MEDS: Lactulose Soln 10 GM/15 ML 15 ML UD Cup NGTUBE SCH (10:25)
[2025-05-16 15:12] LABS: BASE EXCESS ARTERIAL -2.9 mm/L; BICARBONATE,ARTERIAL 21.2 mmol/L (22.0-26.0); O2 SATURATION ARTERIAL 99.3 % (95.0-98.0); OXYHEMOGLOBIN 96.3 %; PCO2 ARTERIAL 36.9 mmHg (35.0-42.0); PO2 ARTERIAL 133.0 mmHg (75.0-100.0); TOTAL HEMOGLOBIN 13.1 g/dL (13.5-18.0)
[2025-05-17 05:35] LABS: BASE EXCESS ARTERIAL -2.6 mm/L; BICARBONATE,ARTERIAL 21.2 mmol/L (22.0-26.0); O2 SATURATION ARTERIAL 95.4 % (95.0-98.0); OXYHEMOGLOBIN 93.1 %; PCO2 ARTERIAL 35.7 mmHg (35.0-42.0); PO2 ARTERIAL 73.3 mmHg (75.0-100.0); TOTAL HEMOGLOBIN 13.3 g/dL (13.5-18.0)
[2025-05-17 05:36] LABS: PLATELET COUNT,PLT 162.0 K/uL (130-375); RED BLOOD CELL COUNT 3.9 M/uL (4.14-5.76); WHITE BLOOD CELL COUNT,WBC 7.3 K/uL (3.2-11.0)
[2025-05-17 05:59] LABS: A/G RATIO 0.6 (1.2-2.2); ALANINE AMINOTRANSFERASE,ALT 41 U/L (12-78); ASPARTATE AMNIOTRANSFERASE,AST 35 U/L (15-37); BILIRUBIN TOTAL 4.2 mg/dL (0.2-1.0); BLOOD UREA NITROGEN,BUN 15 mg/dL (7-18); CARBON DIOXIDE,CO2 23 mmol/L (21-32); CHLORIDE,CL 104 mmol/L (100-108); CREATININE 0.6 mg/dL (0.8-1.3); EST CRCL DRUG DOSING (CG) 178.08 mL/min; ESTIMATED GFR 124 mL/min (>60); GLUCOSE RANDOM 157 mg/dL (74-106); POTASSIUM,K 4.3 mmol/L (3.6-5.2); PROTEIN TOTAL,TP 7.0 g/dL (6.4-8.2); SODIUM,NA 138 mmol/L (140-148)
[2025-05-17] MEDS: methylPREDNISolone Sodium Succinate 125 MG/2 ML SDV IVPUSH SCH (17:23)
[2025-05-18 05:26] LABS: PLATELET COUNT,PLT 205.0 K/uL (130-375); RED BLOOD CELL COUNT 3.83 M/uL (4.14-5.76); WHITE BLOOD CELL COUNT,WBC 7.3 K/uL (3.2-11.0)
[2025-05-18 05:27] LABS: BASE EXCESS ARTERIAL -0.3 mm/L; BICARBONATE,ARTERIAL 22.9 mmol/L (22.0-26.0); O2 SATURATION ARTERIAL 99.3 % (95.0-98.0); OXYHEMOGLOBIN 96.5 %; PCO2 ARTERIAL 34.5 mmHg (35.0-42.0); PO2 ARTERIAL 143.0 mmHg (75.0-100.0); TOTAL HEMOGLOBIN 13.1 g/dL (13.5-18.0)
[2025-05-18 05:48] LABS: A/G RATIO 0.6 (1.2-2.2); ALANINE AMINOTRANSFERASE,ALT 65 U/L (12-78); ASPARTATE AMNIOTRANSFERASE,AST 86 U/L (15-37); BILIRUBIN TOTAL 3.5 mg/dL (0.2-1.0); BLOOD UREA NITROGEN,BUN 16 mg/dL (7-18); CARBON DIOXIDE,CO2 25 mmol/L (21-32); CHLORIDE,CL 107 mmol/L (100-108); CREATININE 0.7 mg/dL (0.8-1.3); EST CRCL DRUG DOSING (CG) 152.64 mL/min; ESTIMATED GFR 119 mL/min (>60); GLUCOSE RANDOM 124 mg/dL (74-106); PHOSPHORUS 2.1 mg/dL (2.5-4.9); POTASSIUM,K 4.1 mmol/L (3.6-5.2); PROTEIN TOTAL,TP 6.6 g/dL (6.4-8.2); SODIUM,NA 141 mmol/L (140-148)
[2025-05-18] MEDS: Iopamidol 612 MG/ML 100 ML Bottle IV ONE (13:20)
[2025-05-18] MEDS: Sodium Chloride 0.9% 10 ML Syringe FLUSH ONE (13:20)
[2025-05-18] MEDS: Furosemide 20 MG/2 ML VIAL IVPUSH ONE (15:19)
[2025-05-19 05:30] LABS: PLATELET COUNT,PLT 191.0 K/uL (130-375); RED BLOOD CELL COUNT 3.81 M/uL (4.14-5.76); WHITE BLOOD CELL COUNT,WBC 6.3 K/uL (3.2-11.0)
[2025-05-19 05:31] LABS: BASE EXCESS ARTERIAL 0.8 mm/L; BICARBONATE,ARTERIAL 25.0 mmol/L (22.0-26.0); O2 SATURATION ARTERIAL 99.3 % (95.0-98.0); OXYHEMOGLOBIN 96.0 %; PCO2 ARTERIAL 40.4 mmHg (35.0-42.0); PO2 ARTERIAL 144.0 mmHg (75.0-100.0); TOTAL HEMOGLOBIN 12.9 g/dL (13.5-18.0)
[2025-05-19 05:52] LABS: A/G RATIO 0.6 (1.2-2.2); ALANINE AMINOTRANSFERASE,ALT 125 U/L (12-78); ASPARTATE AMNIOTRANSFERASE,AST 124 U/L (15-37); BILIRUBIN TOTAL 3.3 mg/dL (0.2-1.0); BLOOD UREA NITROGEN,BUN 12 mg/dL (7-18); CARBON DIOXIDE,CO2 27 mmol/L (21-32); CHLORIDE,CL 108 mmol/L (100-108); CREATININE 0.6 mg/dL (0.8-1.3); EST CRCL DRUG DOSING (CG) 178.08 mL/min; ESTIMATED GFR 124 mL/min (>60); GLUCOSE RANDOM 121 mg/dL (74-106); PHOSPHORUS 2.9 mg/dL (2.5-4.9); POTASSIUM,K 3.6 mmol/L (3.6-5.2); PROTEIN TOTAL,TP 6.4 g/dL (6.4-8.2); SODIUM,NA 144 mmol/L (140-148)
[2025-05-19] MEDS: Ondansetron 4 MG Tab.DIS PO PRN (17:02)
[2025-05-19] MEDS: Lactulose Soln 10 GM/15 ML 15 ML UD Cup PO SCH (20:19)
[2025-05-20 05:22] LABS: PLATELET COUNT,PLT 172.0 K/uL (130-375); RED BLOOD CELL COUNT 3.88 M/uL (4.14-5.76); WHITE BLOOD CELL COUNT,WBC 7.3 K/uL (3.2-11.0)
[2025-05-20 05:43] LABS: A/G RATIO 0.7 (1.2-2.2); ALANINE AMINOTRANSFERASE,ALT 155 U/L (12-78); ASPARTATE AMNIOTRANSFERASE,AST 114 U/L (15-37); BILIRUBIN TOTAL 4.1 mg/dL (0.2-1.0); BLOOD UREA NITROGEN,BUN 11 mg/dL (7-18); CARBON DIOXIDE,CO2 29 mmol/L (21-32); CHLORIDE,CL 106 mmol/L (100-108); CREATININE 0.6 mg/dL (0.8-1.3); EST CRCL DRUG DOSING (CG) 178.08 mL/min; ESTIMATED GFR 124 mL/min (>60); GLUCOSE RANDOM 117 mg/dL (74-106); PHOSPHORUS 2.9 mg/dL (2.5-4.9); POTASSIUM,K 3.6 mmol/L (3.6-5.2); PROTEIN TOTAL,TP 6.2 g/dL (6.4-8.2); SODIUM,NA 141 mmol/L (140-148)
[2025-05-20] MEDS: Ketorolac 30 MG/ML SDV IVPUSH PRN (16:35)
[2025-05-22 05:21] VITALS: BP 125/74
[2025-05-22 08:30] VITALS: PULSE 97
[2025-05-22] MEDS: Lactulose Soln 10 GM/15 ML 15 ML UD Cup PO SCH (08:30)
== END 2025-05-22 13:18 | disposition home or self-care (01) | DRG 896 ==
LOC: JP.ED 07:56 → JP.ICU 12:14
PROVIDERS: ADMIT Student in an Organized Health Care Education/Training Program; ATTEND Student in an Organized Health Care Education/Training Program
PROC: 5A1955Z Respiratory Ventilation, Greater than 96 Consecutive Hours (ICD-10-PCS; principal; 2025-05-12)
PROC: 0BH17EZ Insertion of Endotracheal Airway into Trachea, Via Natural or Artificial Opening (ICD-10-PCS; 2025-05-12)
PROC: 03HY32Z Insertion of Monitoring Device into Upper Artery, Percutaneous Approach (ICD-10-PCS; 2025-05-12)
PROC: 4A133B1 Monitoring of Arterial Pressure, Peripheral, Percutaneous Approach (ICD-10-PCS; 2025-05-12)
PROC: 4A133J1 Monitoring of Arterial Pulse, Peripheral, Percutaneous Approach (ICD-10-PCS; 2025-05-12)
PROC: 4A133R1 Monitoring of Arterial Saturation, Peripheral, Percutaneous Approach (ICD-10-PCS; 2025-05-12)
PROC: 3E03329 Introduction of Other Anti-infective into Peripheral Vein, Percutaneous Approach (ICD-10-PCS; 2025-05-12)
PROC: 0T9B70Z Drainage of Bladder with Drainage Device, Via Natural or Artificial Opening (ICD-10-PCS; 2025-05-12)
PROC: 02HV33Z Insertion of Infusion Device into Superior Vena Cava, Percutaneous Approach (ICD-10-PCS; 2025-05-16)
DX: F10.131 Alcohol abuse with withdrawal delirium (principal); J69.0 Pneumonitis due to inhalation of food and vomit; J96.01 Acute respiratory failure with hypoxia; K92.0 Hematemesis; E87.20 Acidosis, unspecified; H54.7 Unspecified visual loss; I10 Essential (primary) hypertension; J45.909 Unspecified asthma, uncomplicated; K21.9 Gastro-esophageal reflux disease without esophagitis; M19.90 Unspecified osteoarthritis, unspecified site; E66.9 Obesity, unspecified; E83.42 Hypomagnesemia; K70.30 Alcoholic cirrhosis of liver without ascites; F32.9 Major depressive disorder, single episode, unspecified; E87.6 Hypokalemia; F41.8 Other specified anxiety disorders; Z78.1 Physical restraint status; Z88.8 Allergy status to other drugs, medicaments and biological substances; Z79.899 Other long term (current) drug therapy; Z68.37 Body mass index [BMI] 37.0-37.9, adult; Z86.16 Personal history of COVID-19; Z98.890 Other specified postprocedural states
CPT/HCPCS: 31500; 36415; 36620; 51702; 71045; 71045-26; 71260; 80053; 80305-QW; 80307; 81001; 82140; 82550; 82803; 83690; 83735; 84100; 84132; 84478; 84484; 85025; 85027; 85610; 85730; 86140; 87070; 87077; 87186; 87205; 93005; 93010; 94002; 94003; 94640; 96365; 96366; 96375; 96376; 97110-GP; 97162-GP; 97530-GP; 99223; 99233; 99239; 99285; 99285-25; A9270-GY; C1751; J0696; J0713; J0780; J1171; J1271; J1630; J1644; J1650; J1808; J1885; J1938; J2060; J2270; J2405; J2470; J2560; J2704; J2919; J3411; J3475; J3480; J3490; J7030; J7040; Q0162; Q9967

== ENCOUNTER 2025-07-10 10:26 | Day surgery (SDC) | payer OTHER ==
[~2025-07-10 10:26] MED LIST changes: -Dexamethasone 4 MG/ML SDV ONE; -Glycopyrrolate 0.2 MG/ML 5 ML MDV ONE; +Midazolam 1 MG/ML 2 ML SDV ONE; -Neostigmine Methylsulfate 1 MG/ML 5 ML Syringe ONE; -Ondansetron 4 MG/2 ML SDV ONE; -Rocuronium 50 MG/5 ML Vial ONE; -Succinylcholine 200 MG/10 ML MDV ONE; +fentaNYL 50 MCG/ML SDV ONE
[2025-07-10] MEDS ORDERED: Propofol 200 MG/20 ML SDV ONE ×3 (11:01→12:38)
[2025-07-10] MEDS: Lactated Ringers 1,000 ML IV SCH (11:16)
[2025-07-10 13:58] VITALS: PULSE 67
[2025-07-10 13:59] VITALS: BP 150/94
== END 2025-07-10 14:00 | disposition home or self-care (01) ==
LOC: JP.SDS 10:26
PROVIDERS: ATTEND Surgery
DX: K64.8 Other hemorrhoids (principal); K62.89 Other specified diseases of anus and rectum; R19.4 Change in bowel habit; I10 Essential (primary) hypertension; E66.9 Obesity, unspecified; Z88.8 Allergy status to other drugs, medicaments and biological substances; Z88.5 Allergy status to narcotic agent; Z68.30 Body mass index [BMI] 30.0-30.9, adult; Z79.899 Other long term (current) drug therapy
CPT/HCPCS: 00811; 45380; 45398; J2250; J2704; J3010; J7120

== ENCOUNTER 2025-07-23 03:54 | Emergency (ER) | payer OTHER ==
[2025-07-23 04:50] LABS: BASOPHILS ABSOLUTE AUTO 0.04 K/uL (0.00-0.10); BASOPHILS PERCENT AUTO 0.7 % (0.1-1.3); EOSINOPHILS ABSOLUTE AUTO 0.03 K/uL (0.00-0.40); EOSINOPHILS PERCENT AUTO 0.5 % (0.0-5.4); IMMATURE GRAN ABSOLUTE AUTO 0.03 K/uL (0.00-0.23); IMMATURE GRAN PERCENT AUTO 0.5 % (0.0-0.7); LYMPHOCYTES ABSOLUTE AUTO 0.84 K/uL (0.8-3.3); LYMPHOCYTES PERCENT AUTO 15.1 % (11.4-47.7); MONOCYTES ABSOLUTE AUTO 0.43 K/uL (0.20-0.90); MONOCYTES PERCENT AUTO 7.7 % (3.3-12.6); NEUTROPHILS ABSOLUTE AUTO 4.19 K/uL (1.0-7.6); NEUTROPHILS PERCENT AUTO 75.5 % (40.0-78.1); PLATELET COUNT,PLT 108 K/uL (130-375); RED BLOOD CELL COUNT 4.92 M/uL (4.14-5.76); WHITE BLOOD CELL COUNT,WBC 5.6 K/uL (3.2-11.0)
[2025-07-23] MEDS: LORazepam 2 MG/ML SDV IVPUSH ONE ×3 (04:54→11:54)
[2025-07-23 05:13] LABS: A/G RATIO 0.8 (1.2-2.2); ALANINE AMINOTRANSFERASE,ALT 30 U/L (12-78); ASPARTATE AMNIOTRANSFERASE,AST 56 U/L (15-37); BILIRUBIN TOTAL 3.6 mg/dL (0.2-1.0); CARBON DIOXIDE,CO2 20 mmol/L (21-32); CHLORIDE,CL 99 mmol/L (100-108); CREATININE 1.1 mg/dL (0.8-1.3); EST CRCL DRUG DOSING (CG) 94.13 mL/min; ESTIMATED GFR 86 mL/min (>60); GLUCOSE RANDOM 121 mg/dL (74-106); POTASSIUM,K 3.1 mmol/L (3.6-5.2); PROTEIN TOTAL,TP 8.2 g/dL (6.4-8.2); SODIUM,NA 139 mmol/L (140-148)
[2025-07-23 05:29] LABS: BLOOD UREA NITROGEN,BUN 2 mg/dL (7-18)
[2025-07-23] MEDS: PHENobarbitaL sodium 260 MG in Sodium Chloride 0.9% 100 ML IV ONE (06:13)
[2025-07-23] MEDS: NS + KCl 20mEq/L 1,000 ML IV SCH (06:19)
[2025-07-23 07:49] LABS: AMPHETAMINES SCREEN, URINE NEGATIVE (NEGATIVE); METHAMPHETAMINES SCREEN, URINE NEGATIVE (NEGATIVE); THC SCREEN,URINE 50 NG/ML PRESUMPTIVE POSITIVE (NEGATIVE)
[2025-07-23 07:50] LABS: METHADONE SCREEN, URINE NEGATIVE (NEGATIVE); OXYCODONE SCREEN,URINE NEGATIVE (NEGATIVE); PROPOXYPHENE SCREEN,URINE NEGATIVE (NEGATIVE)
[2025-07-23] MEDS: Ondansetron 4 MG/2 ML SDV IVPUSH ONE (08:16)
[2025-07-23] MEDS: Prochlorperazine 10 MG/2 ML SDV IVPUSH ONE ×2 (08:36→11:55)
[2025-07-23 14:08] VITALS: BP 143/81; PULSE 101
== END 2025-07-23 13:20 | disposition other institution (70) ==
LOC: JP.ED 03:54
DX: F10.131 Alcohol abuse with withdrawal delirium (principal); I10 Essential (primary) hypertension; E66.9 Obesity, unspecified; Z86.16 Personal history of COVID-19; Y90.6 Blood alcohol level of 120-199 mg/100 ml; Z79.899 Other long term (current) drug therapy; Z88.6 Allergy status to analgesic agent; Z88.5 Allergy status to narcotic agent; Z68.38 Body mass index [BMI] 38.0-38.9, adult
CPT/HCPCS: 36415; 80053; 80305; 80307; 85025; 96365; 96366; 96367; 96375; 96376; 99285; J0780; J2060; J2560; J3480; J2405